=== PATIENT | male | born 1965 | race Caucasian/White ===

== ENCOUNTER 2021-10-08 11:48 | Emergency (ER) | payer OTHER ==
[2021-10-08 12:11] VITALS: BP 147/86; PULSE 78; TEMP 98.3; BMI 33.5
== END 2021-10-08 13:40 | disposition home or self-care (01) ==
LOC: JERFT 11:48
PROC: 0HQ0XZZ Repair Scalp Skin, External Approach (ICD-10-PCS; principal; 2021-10-08)
DX: S01.01XA Laceration without foreign body of scalp, initial encounter (principal); W22.09XA Striking against other stationary object, initial encounter
CPT/HCPCS: 99282-25